=== PATIENT | female | born 1960 ===

== ENCOUNTER → 2021-09-26 08:35 | Outpatient (CLI) | payer BC, SELFPAY ==
--- NOTE | ~2021-09-26 | MR_ITS ---
EXAMINATION: MR hip LT wo con DATE: 09/26/2021 10:03 INDICATION: Left hip pain TECHNIQUE: Magnetic resonance imaging (MRI) of the left hip was performed without intravenous contra st. Sequences included full-field axial PD-weighted FS FSE and T1-weighted FSE, coronal of the pelvis with PD-weighted FS FSE, T2-weighted FSE and T1-weighted FSE, small field of view of the left hip wi th axial PD-weighted FS FSE, sagittal PD-weighted FS FSE, coronal PD-weighted FS FSE and coronal T2 weighted FSE. Additional radial T1-weighted FGR oriented orthogonal to the acetabular rim were obtain ed for evaluation of the labrum. COMPARISON: None FINDINGS: Bones/labrum/cartilage: Alignment is normal. No fracture or pathologic marrow replacing process. There is a serpiginous low signal intensity line on T1-weighted images at the posterior superior aspect of the left femoral head evident on the nonfat saturated T1 and T2-weighted images without evident associated increased T2 si gnal which suggests a region of possible chronic osteonecrosis. There is suggestion of some related t o to the overlying articular cortex on the small [id number] sagittal images. Osteoarthritis at the bilateral hips, mild on the right and moderate to severe on the left where there is deep chondral ul ceration with mild underlying edema-like signal changes at the superomedial and anterosuperior aspect of the acetabulum and along the anterosuperior aspect of the femoral head. There are linear increase d fluid signal intensity tears at the base of the anterosuperior and posterior left acetabular labrum with more amorphous increased signal consistent with degeneration of the intervening superolateral l abrum. There appears to be additional tear of the anterosuperior to superolateral right acetabular la benson with small amount of heterotopic ossification/os acetabulum at the posterolateral right acetabul ar labrum seen on the larger field of view images. Severe lower lumbar spondylosis. Fluid: Asymmetric small left hip joint effusion. Physiologic amount of fluid in the right hip joint. Trace a mount of likely physiologic free fluid in the pelvis. No bursitis or other abnormal fluid collections . Soft tissues: Normal and symmetric muscle bulk and signal in the pelvis and visualized proximal thighs. The iliopso as, gluteal and proximal hamstring tendons are normal. Right pelvic transplant kidney. 1 cm right adn exal cyst. Uterus, left adnexa and bladder are unremarkable. A few sigmoid diverticula without adjace nt from 3 change to suggest diverticulitis. No pathologically enlarged pelvic/inguinal lymphadenopath y. IMPRESSION: 1. Mild right and moderate to severe left hip osteoarthritis, the latter may be secondary to what mehnaz ears to be a small region of chronic osteonecrosis at the posterior superior aspect of the left femor al head. 2. Likely reactive small left hip joint effusion. 3. Bilateral labral tears. Reviewed, dictated and finalized at location A. IMPRESSION: 1. Mild right and moderate to severe left hip osteoarthritis, the latter may be secondary to what appears to be a small region of chronic osteonecrosis at the posterior superior aspect of the left femoral head. 2. Likely reactive small left hip joint effusion. 3. Bilateral labral tears.
== END ==
PROVIDERS: PCP Family Medicine; Visit Provider Orthopaedic Surgery
DX: M16.0 Bilateral primary osteoarthritis of hip (principal)
CPT/HCPCS: 73721